=== PATIENT | female | born 1990 | race Caucasian/White ===

== ENCOUNTER 2023-01-26 14:01 | Outpatient (CLI) | payer SELFPAY ==
[2023-01-26 18:55] LABS: Chlamydia DNA Amplified* NOT DETECTED (No Detected); GC DNA Amplified* NOT DETECTED (No Detected)
== END 2023-01-26 14:02 | disposition home or self-care (01) ==
PROVIDERS: PCP Family Medicine; Visit Provider Physician Assistant
DX: N89.8 Other specified noninflammatory disorders of vagina (principal); R10.2 Pelvic and perineal pain
CPT/HCPCS: 87070; 87491; 87591

== ENCOUNTER 2023-01-27 11:03 | Outpatient (CLI) | payer SELFPAY ==
--- NOTE | 2023-01-27 11:00 | CRLHL7_ITS ---
For Patients: As a result of the Century Cures Act, medical imaging exams and procedure reports are released immediately into your electronic medical record. You may view this report before your referring provider. If you have questions, please contact your health care provider. CLINICAL HISTORY: PELVIC PAIN TECHNIQUE: 2D jennings scale ultrasound. In addition color Doppler and spectral Doppler analysis was performed of the pelvis using a transabdominal and transvaginal approach. FINDINGS: The myometrium has a normal uniform echotexture. No uterine fibroid. The uterus measures 7.4 x 5.1 x 6.4 cm. The endometrial lining measures 4 mm in thickness. A trace amount of endometrial fluid is present. The right ovary measures 3.9 x 2.5 x 3.5 cm in size and the left ovary is absent. The right ovary demonstrates normal arterial and venous blood flow on color Doppler and spectral Doppler analysis. A small simple cyst right ovary measuring 2.2 cm. Mildly prominent pelvic vascularity. There are no suspicious fluid collections within the cul-de-sac. IMPRESSION: No urine fibroid. Absent left ovary. Incidental small right ovarian cyst. No excess pelvic free fluid. No torsion. Possible pelvic congestion syndrome. Dictated by Sim Broussard MD @ 01/27/2023 3:31:04 PM (Electronically Signed)
== END 2023-01-27 11:04 | disposition home or self-care (01) ==
LOC: US 11:04
PROVIDERS: PCP Family Medicine; Visit Provider Physician Assistant
DX: R10.2 Pelvic and perineal pain (principal); N83.201 Unspecified ovarian cyst, right side
CPT/HCPCS: 76830; 76856; 93976

== ENCOUNTER 2023-02-16 10:07 | Outpatient (CLI) | payer SELFPAY | END 2023-02-16 10:08 | disposition home or self-care (01) | LOC: NFLDREF 10:08 | PROVIDERS: PCP Family Medicine; Visit Provider Obstetrics & Gynecology | DX: R30.0 Dysuria (principal) | CPT/HCPCS: 87086 ==